=== PATIENT | male | born 1985 | race Caucasian/White ===

== ENCOUNTER 2016-12-11 15:39 | Emergency (ER) | payer BC, OTHER ==
--- NOTE | 2016-12-11 18:12 | UC ---
Dental HPI - HPI Summary HPI Summary: Noticed painful lump in R neck 2 days ago, then developed painful sores on R tongue, R cheek, and dry cracked areas on both lips yesterday. Today felt very tired, achy, and had trouble getting out of bed. - History of Current Complaint Chief Complaint: UCRespiratory Stated Complaint: MOUTH SORES Time Seen by Provider: 12/11/16 17:53 Hx Obtained From: Patient Onset/Duration: Gradual Onset, Lasting Days Severity: Mild Aggravating: Nothing Alleviating: Nothing - Allergies/Home Medications Allergies/Adverse Reactions: Allergies Allergy/AdvReac Type Severity Reaction Status Date / Time No Known Allergies Allergy Verified 12/11/16 17:47 PMH/Surg Hx/FS Hx/Imm Hx Previously Healthy: Yes - Surgical History Surgical History: None - Family History Known Family History: Negative: Blood Disorder - Social History Occupation: Employed Part-time Alcohol Use: Rare Substance Use Type: Marijuana Substance Use Comment - Amount & Last Used: rarely Smoking Status (MU): Current Some Day Smoker Type: Pipe Amount Used/How Often: rare Length of Time of Smoking/Using Tobacco: 2016 Review of Systems Constitutional: Negative Skin: Negative Eyes: Negative ENT: Other - sores in mouth Respiratory: Negative Cardiovascular: Negative Gastrointestinal: Negative Genitourinary: Negative Motor: Negative Neurovascular: Negative Musculoskeletal: Negative Neurological: Negative Psychological: Negative All Other Systems Reviewed And Are Negative: Yes Physical Exam Triage Information Reviewed: Yes Appearance: Well-Appearing, No Pain Distress, Well-Nourished Vital Signs: Initial Vital Signs Temp 100 F 12/11/16 17:39 Pulse 115 12/11/16 17:39 Resp 16 12/11/16 17:39 Pulse Ox 98 12/11/16 17:39 Vital Signs Reviewed: Yes Eye Exam: Normal Eyes: Positive: Conjunctiva Clear ENT: Positive: TMs normal, Other: - dry lips, ulceration on R tip of tongue, R buccal mucosa, both lips. Negative: Nasal congestion, Nasal drainage Dental: Positive: Other: - pervasive gingival erythema and hyperplasia Neck: Positive: Supple, Enlarged Nodes @ - R anterior cervical Respiratory Exam: Normal Respiratory: Positive: Chest non-tender, Lungs clear, Normal breath sounds, No respiratory distress, No accessory muscle use Cardiovascular: Positive: No Murmur, Tachycardia Musculoskeletal Exam: Normal Neurological Exam: Normal Psychological Exam: Normal Skin Exam: Normal Dental Complaint Course/Dx - Differential Dx/Diagnosis Provider Diagnoses: Mouth sores. 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 I have sent in testing for this and prescribed treatment for it. If you do not have marked improvement within 10 days, please get seen again.
== END 2016-12-11 18:23 | disposition home or self-care (01) ==
LOC: UCCORT 15:39
DX: K13.70 Unspecified lesions of oral mucosa (principal); B34.9 Viral infection, unspecified; F12.90 Cannabis use, unspecified, uncomplicated; Z72.0 Tobacco use
CPT/HCPCS: 87529; 99202; G0463